=== PATIENT | female | born 1955 | race African-American/Black ===

== ENCOUNTER 2018-07-16 21:14 | Inpatient (IN) | payer SELFPAY ==
[~2018-07-16] VITALS: Ht 177.8 cm; Wt 68.5 kg
--- NOTE | 2018-07-16 22:07 | NUR ---
PT IN [facility]OSPITAL GOWN. PT FAMILY STATED PT C/O WEAKNESS, WEIGHT LOSS, AND ANKLE SWELLING. PT FAMILY STATED PT HAS BEEN DECLINING OVER THE LAST FEW MONTHS. EKG DONE. 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 LAB IN DRAWING BLOOD AT THIS TIME.
--- NOTE | 2018-07-16 22:14 | NUR ---
PT BACK FROM RAD.
[2018-07-16 22:17] LABS: MEAN CORPUSCULAR HEMOGLOBIN 30.3 pg (27.0-34.8); MEAN CORPUSCULAR HGB CONC 33.6 g/dL (32.4-35.8); MEAN CORPUSCULAR VOLUME 90.2 fL (80-100); MEAN PLATELET VOLUME 8.9 fL (7.4-10.4); PLATELET COUNT 349 x10^3/uL (130-400); RED BLOOD COUNT 4.42 x10^6/uL (3.82-5.3); RED CELL DISTRIBUTION WIDTH 17.5 % (9.6-15.2)
[2018-07-16 22:24] LABS: BASOPHILS % (AUTO) 5 % (0-1); EOSINOPHILS # (AUTO) 0.05 x10^3/uL (0-0.4); EOSINOPHILS % (AUTO) 1 % (1-7); LYMPHOCYTES # (AUTO) 2.26 x10^3/uL (1-3.4); LYMPHOCYTES % (AUTO) 35 % (22-44); MD NO; MONOCYTES # (AUTO) 0.16 x10^3/uL (0.2-0.8); MONOCYTES % (AUTO) 3 % (2-9); NEUTROPHILS # (AUTO) 3.65 x10^3/uL (1.8-6.8); NEUTROPHILS % (AUTO) 57 % (42-75)
[2018-07-16 22:29] LABS: ANION GAP 6 mmol/L (5-15); CALCIUM 9.2 mg/dL (8.5-10.1); CHLORIDE 101 mmol/L (98-107); CREATININE 1.12 mg/dL (0.55-1.02)
[2018-07-16 22:30] LABS: ALANINE AMINOTRANSFERASE 36 U/L (12-78); ALBUMIN 2.4 g/dL (3.4-5.0)
[2018-07-16 22:34] LABS: ALKALINE PHOSPHATASE 206 U/L (45-117); TOTAL PROTEIN 8.8 g/dL (6.4-8.2)
[2018-07-16 22:36] LABS: TROPONIN I 0.139 ng/mL (0.000-0.045)
[2018-07-16 22:38] LABS: BILIRUBIN,TOTAL 0.6 mg/dL (0.2-1.0)
[2018-07-16] MEDS ORDERED: ASPIRIN 81 MG TABLET EC ONE (22:39)
[2018-07-16] MEDS ORDERED: ASPIRIN 81 MG TABLET CHEW ONE (22:40)
[2018-07-16] MEDS ORDERED: ASPIRIN 81 MG TABLET CHEW PO ONE (23:00)
[2018-07-16] MEDS ORDERED: ONDANSETRON ODT 4 MG PO PRN (23:30)
[2018-07-16] MEDS ORDERED: NITROGLYCERIN 0.4 MG BOTTLE (25 TABS) SL PRN (23:30)
[2018-07-16] MEDS ORDERED: morphine SULFATE 10 MG/ML, 1ML IVPush PRN (23:30)
[2018-07-16] MEDS ORDERED: POLYETHYLENE GLYCOL 17 GM PACKET PO PRN (23:30)
[2018-07-16] MEDS ORDERED: BISACODYL 10 MG SUPP PR PRN (23:30)
[2018-07-16] MEDS ORDERED: METF500T17 PO (23:37)
--- NOTE | 2018-07-16 23:42 | NUR ---
IV STARTED, REPEAT EKG DONE AND GIVEN TO ERP. PT RESTING CALMLY IN BED. PT WAS ABLE TO AMBULATE STEADILY TO BATHROOM WITH STAND BY ASSIST.
--- NOTE | 2018-07-16 23:50 | NUR ---
REPORT TO [facility]ADLEY FOR ROOM [id number]
--- NOTE | 2018-07-16 23:55 | NUR ---
PT OFFERED FOOD FROM [facility], REFUSED FOOD OFFERINGS AT THIS TIME. PT TO BE NPO AFTER MIDNIGHT.
[2018-07-17 00:06] VITALS: BP 115/68
[2018-07-17 00:14] LABS: HEMOGLOBIN A1C 7.4 % (4.2-6.3)
[2018-07-17] MEDS: FUROSEMIDE 20 MG/2 ML IV SCH ×3 (02:10→16:43)
[2018-07-17] MEDS: HEPARIN 5,000 UNITS/ML, 1ML SQ SCH ×3 (02:10→16:43)
[2018-07-17] MEDS: SODIUM CHLORIDE FLUSH 10ML SYR IVF SCH ×3 (02:10→20:53)
[2018-07-17 02:48] VITALS: BP 110/62
[2018-07-17 04:35] LABS: BASOPHILS # (AUTO) 0.03 x10^3/uL (0-0.1); BASOPHILS % (AUTO) 1 % (0-1); EOSINOPHILS # (AUTO) 0.05 x10^3/uL (0-0.4); EOSINOPHILS % (AUTO) 1 % (1-7); LYMPHOCYTES # (AUTO) 2.15 x10^3/uL (1-3.4); LYMPHOCYTES % (AUTO) 35 % (22-44); MD NO; MEAN CORPUSCULAR HEMOGLOBIN 29.5 pg (27.0-34.8); MEAN CORPUSCULAR HGB CONC 32.7 g/dL (32.4-35.8); MEAN CORPUSCULAR VOLUME 90.1 fL (80-100); MONOCYTES # (AUTO) 0.26 x10^3/uL (0.2-0.8); MONOCYTES % (AUTO) 4 % (2-9); NEUTROPHILS # (AUTO) 3.62 x10^3/uL (1.8-6.8); NEUTROPHILS % (AUTO) 59 % (42-75); PLATELET COUNT 368 x10^3/uL (130-400); RED BLOOD COUNT 4.61 x10^6/uL (3.82-5.3); RED CELL DISTRIBUTION WIDTH 17.6 % (9.6-15.2)
[2018-07-17 04:47] LABS: ALBUMIN 2.4 g/dL (3.4-5.0); ANION GAP 6 mmol/L (5-15); CALCIUM 9.2 mg/dL (8.5-10.1); CHLORIDE 101 mmol/L (98-107)
[2018-07-17 04:51] LABS: ALANINE AMINOTRANSFERASE 38 U/L (12-78); ALKALINE PHOSPHATASE 208 U/L (45-117); BILIRUBIN,TOTAL 0.6 mg/dL (0.2-1.0); CHOL/HDL RATIO 5.3; CHOLESTEROL, TOTAL 181 mg/dL (140-239); HDL CHOL % 19 % (28-40); HDL CHOLESTEROL (DIRECT) 34 mg/dL (40-60); LDL CHOLESTEROL,CALCULATED 118 mg/dL (54-169); TRIGLYCERIDES 146 mg/dL (50-200); VLDL CHOLESTEROL 29 mg/dL (0-25)
[2018-07-17 04:52] LABS: LDL/HDL RATIO 3.5 (0.5-3.0); TROPONIN I 0.142 ng/mL (0.000-0.045)
[2018-07-17] MEDS: ASPIRIN 81 MG TABLET EC PO SCH (06:05)
[2018-07-17 07:15] VITALS: BP 135/71
[2018-07-17] MEDS ORDERED: REGADENOSON 0.4 MG/5 ML SYRINGE ONE (07:57)
[2018-07-17] MEDS: SENNA/DOCUSATE TABLET PO SCH (08:38)
[2018-07-17 12:36] LABS: TROPONIN I 0.121 ng/mL (0.000-0.045)
[2018-07-17 12:37] VITALS: BP 128/63
[2018-07-17 20:15] VITALS: BP 104/64
[2018-07-17] MEDS ORDERED: OMNIPAQUE 350 MG/ML, 100ML BOTTLE ONE (23:17)
[2018-07-18 01:44] VITALS: BP 111/66
[2018-07-18] MEDS: HEPARIN 5,000 UNITS/ML, 1ML SQ SCH ×3 (02:03→17:41)
[2018-07-18] MEDS: ASPIRIN 81 MG TABLET EC PO SCH (05:33)
[2018-07-18 07:11] VITALS: BP 130/72
[2018-07-18] MEDS: SODIUM CHLORIDE FLUSH 10ML SYR IVF SCH ×2 (09:15→21:10)
[2018-07-18] MEDS: SENNA/DOCUSATE TABLET PO SCH (09:15)
[2018-07-18] MEDS: ACETAMINOPHEN 325 MG TABLET PO PRN (09:15)
[2018-07-18 09:20] LABS: INTERNATIONAL NORMALIZED RATIO 1.14 (0.93-1.1)
[2018-07-18 09:47] LABS: ABSOLUTE RETICS # 0.077 x10^6/uL (0.5-2.5); RED BLOOD COUNT 4.24 x10^6/uL (3.82-5.3); RETICULOCYTE COUNT % 1.83 % (0.5-1.5)
[2018-07-18] MEDS ORDERED: IRON DEXTRAN COMPLEX 0 MG in SODIUM CHLORIDE 0.9% 250 ML IV ONE (13:30)
[2018-07-18 13:56] VITALS: BP 141/63
[2018-07-18] MEDS: FERROUS SULFATE 325 MG TABLET PO SCH ×2 (14:06→17:40)
[2018-07-18 15:01] LABS: HCT (SEDRATE) 37.3 % (34.6-47.8)
[2018-07-18 15:46] LABS: FOLATE LEVEL > 20.0 ng/mL (3.1-17.5)
[2018-07-18 19:13] VITALS: BP 106/68
[2018-07-19 00:40] VITALS: BP 101/62
[2018-07-19] MEDS: HEPARIN 5,000 UNITS/ML, 1ML SQ SCH ×3 (02:10→18:00)
[2018-07-19] MEDS: ASPIRIN 81 MG TABLET EC PO SCH (05:51)
[2018-07-19 07:40] VITALS: BP 122/69
[2018-07-19] MEDS: SENNA/DOCUSATE TABLET PO SCH (08:07)
[2018-07-19] MEDS: SODIUM CHLORIDE FLUSH 10ML SYR IVF SCH ×2 (08:07→20:32)
[2018-07-19 15:25] VITALS: BP 118/62
[2018-07-19 19:40] VITALS: BP 108/68
[2018-07-19 21:39] LABS: MICROSCOPIC AUTO
[2018-07-19 21:43] LABS: CULTURE INDICATED? YES
[2018-07-20 00:43] VITALS: BP 115/67
[2018-07-20] MEDS: HEPARIN 5,000 UNITS/ML, 1ML SQ SCH ×3 (02:00→17:46)
[2018-07-20] MEDS: ASPIRIN 81 MG TABLET EC PO SCH (03:01)
[2018-07-20] MEDS ORDERED: SODIUM CHLORIDE 0.9% 1,000 ML IV ONE (07:43)
[2018-07-20 08:06] VITALS: BP 109/67
[2018-07-20] MEDS: SENNA/DOCUSATE TABLET PO SCH (08:34)
[2018-07-20] MEDS: ACETAMINOPHEN 325 MG TABLET PO PRN (08:35)
[2018-07-20] MEDS: SODIUM CHLORIDE FLUSH 10ML SYR IVF SCH ×2 (08:35→20:59)
[2018-07-20 12:45] VITALS: BP 121/74
[2018-07-20] MEDS ORDERED: FENTANYL PF 100 MCG/2ML ONE (13:31)
[2018-07-20] MEDS ORDERED: MIDAZOLAM 1 MG/ML, 2ML ONE (13:31)
[2018-07-20 19:38] VITALS: BP 117/69
[2018-07-20] MEDS: AMOXICILLIN 500 MG CAPSULE PO SCH (20:58)
[2018-07-21 00:56] VITALS: BP 128/79
[2018-07-21] MEDS: ASPIRIN 81 MG TABLET EC PO SCH (05:54)
[2018-07-21 07:48] VITALS: BP 127/71
[2018-07-21] MEDS: SENNA/DOCUSATE TABLET PO SCH (09:00)
[2018-07-21] MEDS: ACETAMINOPHEN 325 MG TABLET PO PRN (09:39)
[2018-07-21] MEDS: AMOXICILLIN 500 MG CAPSULE PO SCH ×2 (09:39→15:24)
[2018-07-21] MEDS: HEPARIN 5,000 UNITS/ML, 1ML SQ SCH ×2 (09:39→18:00)
[2018-07-21] MEDS: SODIUM CHLORIDE FLUSH 10ML SYR IVF SCH (09:40)
[2018-07-21] MEDS ORDERED: AMOX-291 PO (10:02)
[2018-07-21] MEDS ORDERED: ASPI81TA45 PO (10:22)
[2018-07-21 14:30] VITALS: BP 104/67
== END 2018-07-21 19:26 | disposition home or self-care (01) | DRG 545 ==
LOC: ED 23:32 → 5SO 23:33
PROVIDERS: ADMIT Internal Medicine; ATTEND Internal Medicine
PROC: 02B Heart and Great Vessels, Excision (ICD-10-PCS; principal; 2018-07-20)
DX: E85.4 Organ-limited amyloidosis (principal); I21.4 Non-ST elevation (NSTEMI) myocardial infarction; E43 Unspecified severe protein-calorie malnutrition; I42.9 Cardiomyopathy, unspecified; I47.1 Supraventricular tachycardia; N39.0 Urinary tract infection, site not specified; I43 Cardiomyopathy in diseases classified elsewhere; E11.9 Type 2 diabetes mellitus without complications; I10 Essential (primary) hypertension; I34.0 Nonrheumatic mitral (valve) insufficiency; B95.1 Streptococcus, group B, as the cause of diseases classified elsewhere; M35.3 Polymyalgia rheumatica; J94.9 Pleural condition, unspecified; Z83.3 Family history of diabetes mellitus; Z87.442 Personal history of urinary calculi; Z87.891 Personal history of nicotine dependence; Z90.710 Acquired absence of both cervix and uterus; Z90.49 Acquired absence of other specified parts of digestive tract; Z68.21 Body mass index [BMI] 21.0-21.9, adult
CPT/HCPCS: 36415; 71046; 71275; 76700; 78452; 80053; 80061; 81001; 82607; 82728; 82746; 83010; 83036; 83540; 83550; 83615; 83880; 84155; 84165; 84466; 84484; 85025; 85045; 85379; 85610; 85651; 87086; 87147; 88307; 93005; 93017; 93306; 93505; 93970; 99156; 99285; C1894; G0378; J1644; J2250; J2785; J3010; Q9967; A9502; C9898; J1940; J7030; J7512